=== PATIENT | male | born 1930 | race Caucasian/White ===

== ENCOUNTER 2018-01-16 08:34 | Inpatient (IN) | payer OTHER ==
[~2018-01-16] VITALS: Ht 185.4 cm; Wt 83.7 kg
[2018-01-16 08:58] LABS: GLUCOSE,POINT OF CARE 209 MG/DL (70-110)
[2018-01-16] MEDS ORDERED: MORPHINE SULFATE 2 MG/ML SYRINGE IVP ONE (09:00)
[2018-01-16] MEDS ORDERED: CefTRIAXone SODIUM 1 GM/VIAL IV ONE (09:00)
[2018-01-16 09:04] LABS: BASOPHILS % (AUTO) 0.2 % (0.0-2.0); EOSINOPHILS % (AUTO) 0.1 % (1.0-6.0); HEMOGLOBIN 13.7 g/dL (13.5-17.5); LYMPHOCYTES # (AUTO) 0.4 K/uL (1.0-4.8); MEAN CORPUSCULAR HEMOGLOBIN 25.7 pg (26.0-34.0); MEAN CORPUSCULAR HGB CONC 32.7 G/dL (31.0-37.0); MEAN CORPUSCULAR VOLUME 78 fL (80-100); MONOCYTES % (AUTO) 14.9 % (2.0-9.0); NEUTROPHILS % (AUTO) 81.8 % (40.0-70.0); PLATELET COUNT (AUTO) 261 K/uL (150-450); RED BLOOD CELL COUNT(AUTO) 5.36 MIL/uL (4.50-5.90); RED CELL DISTRIBUTION WIDTH 20.4 % (11.5-14.5)
[2018-01-16] MEDS ORDERED: PRED20 PO (09:04)
[2018-01-16] MEDS ORDERED: ADV500 IH (09:04)
[2018-01-16] MEDS ORDERED: ALBU2.5V2 NEB (09:04)
[2018-01-16] MEDS ORDERED: ALBU8HFA PO (09:04)
[2018-01-16] MEDS ORDERED: TIOT185 IH (09:04)
[2018-01-16] MEDS ORDERED: SIMV-261 PO (09:04)
[2018-01-16] MEDS ORDERED: LEVO50 PO (09:04)
[2018-01-16] MEDS ORDERED: CLOP75 PO (09:04)
[2018-01-16] MEDS ORDERED: METO25 PO (09:04)
[2018-01-16 09:11] LABS: ANION GAP 5 mmol/L (8-16); CALCIUM, TOTAL 8.6 mg/dL (8.8-10.5); CARBON DIOXIDE 29 mmol/L (22-29); CHLORIDE 105 mmol/L (98-107); CREATININE 1.16 mg/dL (0.60-1.30); GLOMERULAR FILTR. RATE CALC 59 mL/min (>60); GLUCOSE,RANDOM 186 mg/dL (70-110); POTASSIUM 4.7 mmol/L (3.5-5.1); SODIUM SERUM 139 mmol/L (136-145); UREA NITROGEN, BLOOD 24 mg/dL (7-18)
[2018-01-16] MEDS ORDERED: SODIUM CHLORIDE 0.9% 1,000 ML IV ONE ×2 (09:15)
[2018-01-16 09:17] LABS: ALANINE AMINOTRANSFERASE 24 U/L (12-78); ALBUMIN 2.8 g/dL (3.4-5.0); ALKALINE PHOSPHATASE 93 U/L (46-116); ASPARTATE AMINOTRANSFERASE 22 U/L (15-37); TOTAL PROTEIN, SERUM 7.5 g/dL (6.4-8.2)
[2018-01-16 09:24] LABS: B-TYPE NATRIURETIC PEPTIDE 927 pg/mL (0-100)
[2018-01-16 09:58] LABS: LACTIC ACID 2.2 mmol/L (0.4-2.0)
[2018-01-16] MEDS ORDERED: DILTIAZEM HCL 5 MG/ML 5 ML VIAL IVP ONE (10:15)
[2018-01-16 12:45] VITALS: BP 101/71
[2018-01-16] MEDS ORDERED: MORPHINE SULFATE 4 MG/ML SYRINGE IVP ONE (15:50)
[2018-01-16] MEDS ORDERED: FUROSEMIDE 40 MG/4 ML VIAL IVP ONE (16:15)
[2018-01-16 16:23] VITALS: BP 113/57
[2018-01-16 19:32] VITALS: BP 92/47
[2018-01-16] MEDS ORDERED: MORPHINE SULFATE 4 MG/ML SYRINGE IVP PRN (20:45)
[2018-01-16 23:26] VITALS: BP 94/46
[2018-01-17 04:55] VITALS: BP 67/42
[2018-01-17 08:27] VITALS: BP 79/41
[2018-01-17 12:22] VITALS: BP 88/42
[2018-01-17] MEDS ORDERED: ALBUTEROL SULFATE 2.5 MG/0.5 ML NEB SOLUTION NEB PRN (13:30)
[2018-01-17] MEDS ORDERED: MORPHINE SULFATE 4 MG/ML SYRINGE IVP PRN (13:30)
[2018-01-17] MEDS ORDERED: BISACODYL 10 MG RECTAL RECTAL SUPPOSITORY PR PRN (13:30)
[2018-01-17] MEDS ORDERED: ACETAMINOPHEN 325 MG TABLET PO PRN (13:30)
[2018-01-17] MEDS ORDERED: ZOLPIDEM TARTRATE 5 MG TABLET PO PRN (13:30)
[2018-01-17] MEDS ORDERED: IPRATROPIUM BROMIDE 0.5 MG/2.5 ML NEB SOLUTION NEB PRN (13:30)
[2018-01-17] MEDS ORDERED: MAGNESIUM HYDROXIDE SUSPENSION 30 ML UDCUP PO PRN (13:30)
[2018-01-17] MEDS ORDERED: ONDANSETRON HCL 4 MG/2 ML VIAL IVP PRN (13:30)
[2018-01-17] MEDS ORDERED: HYDROCODONE/ACETAMINOPHEN 5-325 MG TABLET PO PRN (13:30)
[2018-01-17] MEDS ORDERED: SODIUM CHLORIDE 0.9% 500 ML IV ONE (14:40)
[2018-01-17] MEDS: PIPERACILLIN/TAZO 3.375 GM/D5W 50 ML IV SCH ×2 (15:12→20:05)
[2018-01-17] MEDS: HEPARIN SODIUM,PORCINE 5,000 UNITS/ML VIAL SQ SCH (16:00)
[2018-01-17 16:17] VITALS: BP 56/34
[2018-01-17 16:20] LABS: ABG A-A DIFF O2 439.4 mmHg (10-20.0); ABG BASE EXCESS -3.2 mmol/L (-2.0-3.0); ABG CARBOXYHEMOGLOBIN 1.4 % (0.0-1.5); ABG HCO3 20.3 mmol/L (22.0-26.0); ABG METHEMOGLOBIN 0.7 % (0.0-1.5); ABG OXYGEN CONTENT 17.6 mL/dL (15.0-23.0); ABG OXYGEN SATURATION 99.4 % (95.0-98.0); ABG OXYHEMOGLOBIN 97.3 % (94.0-100.0); ABG TOTAL HEMOGLOBIN 12.6 G/dL (12.0-18.0); PO2, ARTERIAL BG 182.8 mmHg (71.0-79.0); SOURCE, BLOOD GAS ARTERIAL; TEMPERATURE, FAHRENHEIT, BG 98.6 FAHREN (96.0-98.6)
[2018-01-17 16:21] LABS: ABG PCO2 91 mmHg (35-45); ABG PH 7.086 (7.35-7.450); O2 DEVICE,BLOOD GAS BIPAP (ROOM AIR); SITE, BLOOD GAS RT RADIAL
[2018-01-17] MEDS: MethylPREDNISolone SOD SUCC 125 MG/2 ML VIAL IVP SCH (18:20)
[2018-01-17 19:57] VITALS: BP 56/33
[2018-01-17] MEDS: METOPROLOL TARTRATE 25 MG TABLET PO SCH (20:05)
[2018-01-17] MEDS: DOCUSATE SODIUM 100 MG CAPSULE PO SCH (20:05)
[2018-01-17 23:41] VITALS: BP 72/44
[2018-01-18] VITALS (7 sets, daily range): BP systolic 82–112; BP diastolic 50–63
[2018-01-18] MEDS: HEPARIN SODIUM,PORCINE 5,000 UNITS/ML VIAL SQ SCH ×3 (00:12→16:00)
[2018-01-18] MEDS: MethylPREDNISolone SOD SUCC 125 MG/2 ML VIAL IVP SCH ×4 (00:12→17:41)
[2018-01-18] MEDS: PIPERACILLIN/TAZO 3.375 GM/D5W 50 ML IV SCH ×4 (04:09→19:28)
[2018-01-18] MEDS: LEVOTHYROXINE SODIUM 50 MCG TABLET PO SCH (06:03)
[2018-01-18] MEDS ORDERED: PANTOPRAZOLE SODIUM 40 MG/VIAL IVP SCH (09:00)
[2018-01-18] MEDS: DOCUSATE SODIUM 100 MG CAPSULE PO SCH ×2 (09:00→19:25)
[2018-01-18] MEDS ORDERED: FUROSEMIDE 40 MG/4 ML VIAL IVP SCH (09:00)
[2018-01-18] MEDS ORDERED: SIMVASTATIN 40 MG TABLET PO SCH (09:00)
[2018-01-18] MEDS ORDERED: CLOPIDOGREL BISULFATE 75 MG TABLET PO SCH (09:00)
[2018-01-18] MEDS: METOPROLOL TARTRATE 25 MG TABLET PO SCH ×2 (09:00→19:25)
[2018-01-18] MEDS: DIGOXIN 250 MCG/ML 2 ML AMP IVP SCH (18:42)
[2018-01-19] MEDS: DIGOXIN 250 MCG/ML 2 ML AMP IVP SCH (00:16)
[2018-01-19] MEDS: HEPARIN SODIUM,PORCINE 5,000 UNITS/ML VIAL SQ SCH (00:16)
[2018-01-19] MEDS: MethylPREDNISolone SOD SUCC 125 MG/2 ML VIAL IVP SCH ×2 (00:16→05:43)
[2018-01-19] MEDS: PIPERACILLIN/TAZO 3.375 GM/D5W 50 ML IV SCH (01:59)
[2018-01-19 04:52] VITALS: BP 107/66
[2018-01-19] MEDS: LEVOTHYROXINE SODIUM 50 MCG TABLET PO SCH (05:44)
[2018-01-19 07:09] VITALS: BP 126/71
[2018-01-19 11:05] VITALS: BP 101/48
[2018-01-19 14:50] VITALS: BP 67/38
[2018-01-19 19:34] VITALS: BP 50/29
== END 2018-01-19 20:15 | disposition expired | DRG 871 ==
LOC: EMS 08:37 → 5N 10:36
PROVIDERS: ADMIT Hospitalist; ATTEND Hospitalist
PROC: 5A09457 Assistance with Respiratory Ventilation, 24-96 Consecutive Hours, Continuous Positive Airway Pressure (ICD-10-PCS; principal; 2018-01-16)
DX: A41.9 Sepsis, unspecified organism (principal); J96.90 Respiratory failure, unspecified, unspecified whether with hypoxia or hypercapnia; J44.1 Chronic obstructive pulmonary disease with (acute) exacerbation; N17.9 Acute kidney failure, unspecified; J98.11 Atelectasis; E03.9 Hypothyroidism, unspecified; I48.91 Unspecified atrial fibrillation; E78.00 Pure hypercholesterolemia, unspecified; Z51.5 Encounter for palliative care; I51.7 Cardiomegaly; Z66 Do not resuscitate
CPT/HCPCS: 51702; 82805; 83605; 87040; 87081; 93005; 94660; 96374; 96375; 99291; C9113; J0696; J1160; J1644; J1940; J2270; J2543; J2930; J3490; J7030; J7040